=== PATIENT | female | born 1935 | race Caucasian/White ===

== ENCOUNTER → 2016-05-09 | Outpatient (REF) | payer MEDICARE, BC, OTHER ==
[2016-05-09 18:46] LABS: BASO % 0.2 % (0.0-1.0); EOS # 0.1 K/mm3 (0.0-0.50); EOS % 1.1 % (0.0-3.0); LARGE UNSTAINED CELL # 0.1 K/mm3 (0.0-0.4); LARGE UNSTAINED CELL % 1.5 % (0.0-4.0); LYMPH # 0.8 K/mm3 (1.5-4.5); LYMPH % 10.2 % (24.0-44.0); MEAN CORPUSCULAR HEMOGLOBIN 28.6 pg (27.0-33.0); MEAN CORPUSCULAR HGB CONC 30.8 g/dl (32.0-36.5); MONO # 0.4 K/mm3 (0.0-0.8); PLATELET COUNT, AUTOMATED 283 k/mm3 (150-450); RED CELL DISTRIBUTION WIDTH 13.5 % (11.5-14.5); WHITE BLOOD COUNT 7.3 K/mm3 (4.0-10.0)
[2016-05-09 18:50] LABS: ALBUMIN 3.5 GM/DL (3.2-5.2); ALBUMIN/GLOBULIN RATIO 1.06 (1.00-1.93); ALKALINE PHOSPHATASE 93 U/L (45-117); ALT/SGPT 29 U/L (12-78); ANION GAP 11 MEQ/L (8-16); AST/SGOT 19 U/L (15-37); BILIRUBIN,TOTAL 0.3 MG/DL (0.2-1.0); BLOOD UREA NITROGEN 23 MG/DL (7-18); CALCIUM LEVEL 8.9 MG/DL (8.8-10.2); CARBON DIOXIDE LEVEL 24 MEQ/L (21-32); CHLORIDE LEVEL 105 MEQ/L (98-107); CREATININE FOR GFR 0.78 MG/DL (0.55-1.02); GLOMERULAR FILTRATION RATE > 60.0 (>32); GLUCOSE, FASTING 160 MG/DL (83-110); POTASSIUM SERUM 4.5 MEQ/L (3.5-5.1); SODIUM LEVEL 140 MEQ/L (136-145); TOTAL PROTEIN 6.8 GM/DL (6.4-8.2)
[2016-05-14 00:06] LABS: PHENOBARBITAL (PRIMIDONE) None Detected ug/mL (15-40)
== END | disposition home or self-care (01) ==
LOC: M LABNEURO 17:13
PROVIDERS: ATTEND Psychiatry & Neurology Neurology
DX: E11.9 Type 2 diabetes mellitus without complications (principal); R25.1 Tremor, unspecified

== ENCOUNTER → 2017-07-03 | Outpatient (CLI) | payer MEDICARE, BC, OTHER | LOC: M SMT 13:55 | DX: J44.9 Chronic obstructive pulmonary disease, unspecified (principal); R06.02 Shortness of breath | CPT/HCPCS: 71046 ==

== ENCOUNTER 2017-07-15 01:08 | Inpatient (IN) | payer MEDICARE, BC, OTHER ==
[2017-07-15 02:23] LABS: BASO % 0.1 % (0.0-1.0); EOS % 0.1 % (0.0-3.0); HEMATOCRIT 40.8 % (36.0-47.0); HEMOGLOBIN 13.1 g/dl (12.0-16.0); IMMATURE GRANULOCYTE % 0.5 % (0-3.0); LYMPH # 0.8 10^3/uL (1.5-4.5); LYMPH % 4.5 % (24.0-44.0); MEAN CORPUSCULAR HEMOGLOBIN 28.7 pg (27.0-33.0); MEAN CORPUSCULAR HGB CONC 32.1 g/dl (32.0-36.5); MEAN CORPUSCULAR VOLUME 89.3 fl (80.0-96.0); MONO # 0.8 10^3/uL (0.0-0.8); MONO % 4.5 % (0.0-5.0); NEUTROPHILS # 16.8 10^3/uL (1.8-7.7); NEUTROPHILS % 90.3 % (36.0-66.0); PLATELET COUNT, AUTOMATED 293 10^3/uL (150-450); RED BLOOD COUNT 4.57 10^6/uL (4.00-5.40); RED CELL DISTRIBUTION WIDTH 14.1 % (11.5-14.5); WHITE BLOOD COUNT 18.6 10^3/uL (4.0-10.0)
[2017-07-15] MEDS: dexameTHASONE 20 MG/5 ML VIAL (J1100) IV (02:45)
[2017-07-15 02:46] LABS: ANION GAP 7 MEQ/L (8-16); BLOOD UREA NITROGEN 17 MG/DL (7-18); CALCIUM LEVEL 9.1 MG/DL (8.8-10.2); CARBON DIOXIDE LEVEL 28 MEQ/L (21-32); CHLORIDE LEVEL 102 MEQ/L (98-107); CK-MB VALUE MASS 2.4 NG/ML (<3.6); CPK CREATINE PHOSPHOKINASE 47 U/L (26-192); CREATININE FOR GFR 0.79 MG/DL (0.55-1.30); GLOMERULAR FILTRATION RATE > 60.0 (>32); GLUCOSE, FASTING 321 MG/DL (70-100); POTASSIUM SERUM 4.1 MEQ/L (3.5-5.1); SODIUM LEVEL 137 MEQ/L (136-145); TROPONIN I < 0.02 NG/ML (< 0.10)
[2017-07-15 02:46] LABS: LACTIC ACID SEPSIS PROTOCOL 1.9 MMOL/L (0.4-2.0)
[2017-07-15] MEDS: ALBUTEROL SULFATE 2.5 MG/0.5 ML INH NEB SOLN NEB (02:58)
[2017-07-15] MEDS: METOPROLOL 5 MG/5 ML VIAL IV (03:19)
[2017-07-15] MEDS ORDERED: ISOVUE-370 76% 100ML VIAL (Q9967) As Ordered (03:53)
[2017-07-15 04:11] LABS: ABG BASE EXCESS 2.8 (-2.0-2.0); ABG O2 SATURATION 96.6 % (95.0-99.0); ABG PARTIAL PRESSURE CO2 35.4 mmHg (35.0-45.0); ABG PARTIAL PRESSURE O2 81.7 mmHg (75.0-100.0); ABG STANDARD HCO3 26.9 MEQ/L (22.0-26.0); ABG pH (ARTERIAL) 7.483 UNITS (7.350-7.450)
[2017-07-15] MEDS: ACETAMINOPHEN TAB 650MG DOSE (2X325MG) PO (04:24)
[2017-07-15] MEDS: ASPIRIN 325 MG TAB PO (05:08)
[2017-07-15 05:37] LABS: ESTIMATED AVERAGE GLUCOSE 192 MG/DL (60-110); HEMOGLOBIN A1c 8.3 %
[2017-07-15 05:38] LABS: C REACTIVE PROTEIN QUANTITATIV 9.13 MG/DL (0.00-0.30); FREE THYROXINE INDEX 3.2 % (1.3-4.8); T UPTAKE 36 % (30-39); THYROID STIMULATING HORMONE 0.387 uIU/ML (0.358-3.740); THYROXINE (T4) 8.9 UG/DL (4.5-12.0)
[2017-07-15] MEDS ORDERED: NORCO, ANEXSIA 5/325MG TABLET (HYDROcodone/ACETAMINOPHEN) PO (06:00)
[2017-07-15] MEDS ORDERED: LEVALBUTEROL 1.25 MG/0.5 ML CONCENTRATE NEB INH (06:00)
[2017-07-15] MEDS ORDERED: DEXTROSE 50% 50 ML SYRINGE IV (06:00)
[2017-07-15] MEDS ORDERED: GLUCOSE 4 GM CHEW TABLET PO (06:00)
[2017-07-15] MEDS ORDERED: GLUCAGON FOR INJ 1 MG VIAL (J1610) SC (06:00)
[2017-07-15] MEDS ORDERED: ACETAMINOPHEN TAB 650MG DOSE (2X325MG) PO (06:15)
[2017-07-15] MEDS ORDERED: ONDANSETRON 4MG/2ML VIAL (J2405) IV (06:15)
[2017-07-15] MEDS: cefTRIAXone SOD 2 GM in D5W MINI-BAG PLUS 50 ML IV (06:40)
[2017-07-15] MEDS: VERAPAMIL 80 MG TAB PO ×4 (06:43→23:52)
[2017-07-15] MEDS: HumaLOG INSULIN (NovoLOG) PER UNIT SC ×4 (07:30→20:46)
[2017-07-15] MEDS: AZITHROMYCIN INJ 500 MG, VIAL MATE ADAPTER 1 EACH in D5W 250 ML IV (08:29)
[2017-07-15] MEDS: APIXABAN 5 MG TAB (ELIQUIS) PO ×2 (08:29→20:41)
[2017-07-15] MEDS: SENOKOT S TAB PO ×2 (08:29→20:42)
[2017-07-15] MEDS: ASPIRIN 81 MG ENTERIC TAB PO (08:29)
[2017-07-15] MEDS: FLUTICASONE PROP 0.05% NASAL SPRAY 16 GM (FLONASE) ×2 (08:30→20:31)
[2017-07-15] MEDS: IRBESARTAN 75MG TABLET PO (08:31)
[2017-07-15] MEDS: MONTELUKAST 10 MG TAB PO (08:31)
[2017-07-15] MEDS: ROSUVASTATIN 10 MG TAB (CRESTOR) PO (08:32)
[2017-07-15] MEDS: PRIMIDONE 50 MG TAB PO ×2 (08:32→20:41)
[2017-07-15] MEDS: TIOTROPIUM INHALER/CAPSULE (SPIRIVA) INH (09:00)
[2017-07-15] MEDS ORDERED: VERAPAMIL 120 MG SR TAB PO (09:00)
[2017-07-15] MEDS: BUDESONIDE 0.5 MG/2 ML INHALATION SUSPENSION INH ×2 (09:00→21:00)
[2017-07-15] MEDS: ADVAIR HFA 230/21MCG INHALER INH ×2 (09:01→20:37)
[2017-07-15] MEDS: IPRATROPIUM 0.5MG/ALBUTEROL 2.5MG INH SOL UD 3ML (DUONEB)(J7620) NEB ×3 (09:01→20:00)
[2017-07-15 09:29] LABS: CK-MB VALUE MASS 2.8 NG/ML (<3.6); CPK CREATINE PHOSPHOKINASE 64 U/L (26-192); MB/CK RELATIVE INDEX 4.37 (< OR =4); TROPONIN I < 0.02 NG/ML (< 0.10)
[2017-07-15] MEDS: methylPREDNISolone INJ 125 MG/2 ML VIAL (J2930) IV ×2 (11:46→18:48)
[2017-07-15 12:12] LABS: CPK CREATINE PHOSPHOKINASE 68 U/L (26-192); TROPONIN I < 0.02 NG/ML (< 0.10)
[2017-07-15 12:13] LABS: CK-MB VALUE MASS 3.5 NG/ML (<3.6); MB/CK RELATIVE INDEX 5.14 (< OR =4)
[2017-07-15 13:34] LABS: BEDSIDE GLUCOSE 351 MG/DL (83-110)
[2017-07-15 13:34] LABS: BEDSIDE GLUCOSE 313 MG/DL (83-110)
[2017-07-15 17:37] LABS: BEDSIDE GLUCOSE 456 MG/DL (83-110)
[2017-07-15] MEDS: rOPINIRole 0.25 MG TAB(REQUIP) PO (20:41)
[2017-07-15] MEDS: hydrOXYzine 10 MG TAB PO (20:42)
[2017-07-15 21:15] LABS: BEDSIDE GLUCOSE 378 MG/DL (83-110)
[2017-07-16] MEDS: IPRATROPIUM 0.5MG/ALBUTEROL 2.5MG INH SOL UD 3ML (DUONEB)(J7620) NEB ×4 (02:00→23:07)
[2017-07-16] MEDS: methylPREDNISolone INJ 125 MG/2 ML VIAL (J2930) IV (03:34)
[2017-07-16 05:36] LABS: HEMATOCRIT 34.2 % (36.0-47.0); MEAN CORPUSCULAR HEMOGLOBIN 28.8 pg (27.0-33.0); MEAN CORPUSCULAR HGB CONC 31.9 g/dl (32.0-36.5); MEAN CORPUSCULAR VOLUME 90.5 fl (80.0-96.0); PLATELET COUNT, AUTOMATED 224 10^3/uL (150-450); RED BLOOD COUNT 3.78 10^6/uL (4.00-5.40); RED CELL DISTRIBUTION WIDTH 14.3 % (11.5-14.5)
[2017-07-16] MEDS: cefTRIAXone SOD 2 GM in D5W MINI-BAG PLUS 50 ML IV (05:36)
[2017-07-16 05:44] LABS: HEMOGLOBIN 10.9 g/dl (12.0-16.0)
[2017-07-16 05:47] LABS: ANION GAP 9 MEQ/L (8-16); BLOOD UREA NITROGEN 27 MG/DL (7-18); CALCIUM LEVEL 8.7 MG/DL (8.8-10.2); CARBON DIOXIDE LEVEL 25 MEQ/L (21-32); CHLORIDE LEVEL 104 MEQ/L (98-107); CREATININE FOR GFR 0.67 MG/DL (0.55-1.30); GLOMERULAR FILTRATION RATE > 60.0 (>32); GLUCOSE, FASTING 328 MG/DL (70-100); POTASSIUM SERUM 4.3 MEQ/L (3.5-5.1); SODIUM LEVEL 138 MEQ/L (136-145)
[2017-07-16] MEDS: LEVOTHYROXINE 25MCG TABLET (0.025MG) PO (05:58)
[2017-07-16] MEDS ORDERED: NORCO, ANEXSIA 5/325MG TABLET (HYDROcodone/ACETAMINOPHEN) PO (06:00)
[2017-07-16] MEDS: VERAPAMIL 80 MG TAB PO ×3 (06:01→17:10)
[2017-07-16] MEDS: AZITHROMYCIN INJ 500 MG, VIAL MATE ADAPTER 1 EACH in D5W 250 ML IV (06:35)
[2017-07-16] MEDS: TIOTROPIUM INHALER/CAPSULE (SPIRIVA) INH (08:00)
[2017-07-16] MEDS: ADVAIR HFA 230/21MCG INHALER INH ×2 (08:01→23:06)
[2017-07-16] MEDS: BUDESONIDE 0.5 MG/2 ML INHALATION SUSPENSION INH ×2 (08:02→23:06)
[2017-07-16] MEDS: SENOKOT S TAB PO ×2 (08:34→20:11)
[2017-07-16] MEDS: PRIMIDONE 50 MG TAB PO ×2 (08:34→20:11)
[2017-07-16] MEDS: ROSUVASTATIN 10 MG TAB (CRESTOR) PO (08:34)
[2017-07-16] MEDS: IRBESARTAN 75MG TABLET PO (08:34)
[2017-07-16] MEDS: HumaLOG INSULIN (NovoLOG) PER UNIT SC ×4 (08:34→20:16)
[2017-07-16] MEDS: APIXABAN 5 MG TAB (ELIQUIS) PO ×2 (08:34→20:11)
[2017-07-16] MEDS: MONTELUKAST 10 MG TAB PO (08:34)
[2017-07-16] MEDS: ASPIRIN 81 MG ENTERIC TAB PO (08:35)
[2017-07-16] MEDS: FLUTICASONE PROP 0.05% NASAL SPRAY 16 GM (FLONASE) (08:35)
[2017-07-16 12:31] LABS: HEMOGLOBIN 11.8 g/dl (12.0-16.0)
[2017-07-16] MEDS ORDERED: SLF 3 ML SYR IV (12:45)
[2017-07-16] MEDS: SLF 3 ML SYR IV (14:00)
[2017-07-16] MEDS: methylPREDNISolone INJ 40 MG/1 ML VIAL (J2920) IV (15:00)
[2017-07-16 17:13] LABS: BEDSIDE GLUCOSE 401 MG/DL (83-110)
[2017-07-16 17:13] LABS: BEDSIDE GLUCOSE 265 MG/DL (83-110)
[2017-07-16 20:05] LABS: BEDSIDE GLUCOSE 311 MG/DL (83-110)
[2017-07-16] MEDS: rOPINIRole 0.25 MG TAB(REQUIP) PO (20:11)
[2017-07-16] MEDS: hydrOXYzine 10 MG TAB PO (20:11)
[2017-07-16 20:35] LABS: ANION GAP 10 MEQ/L (8-16); BLOOD UREA NITROGEN 35 MG/DL (7-18); CALCIUM LEVEL 8.8 MG/DL (8.8-10.2); CARBON DIOXIDE LEVEL 25 MEQ/L (21-32); CHLORIDE LEVEL 102 MEQ/L (98-107); GLOMERULAR FILTRATION RATE 56.4 (>32); GLUCOSE, FASTING 349 MG/DL (70-100); MAGNESIUM LEVEL 2.1 MG/DL (1.8-2.4); POTASSIUM SERUM 4.8 MEQ/L (3.5-5.1); SODIUM LEVEL 137 MEQ/L (136-145)
[2017-07-17] MEDS: IPRATROPIUM 0.5MG/ALBUTEROL 2.5MG INH SOL UD 3ML (DUONEB)(J7620) NEB ×5 (00:15→20:44)
[2017-07-17] MEDS: VERAPAMIL 80 MG TAB PO ×5 (02:27→23:58)
[2017-07-17] MEDS: methylPREDNISolone INJ 40 MG/1 ML VIAL (J2920) IV (02:27)
[2017-07-17] MEDS: FLUTICASONE PROP 0.05% NASAL SPRAY 16 GM (FLONASE) ×3 (02:27→21:02)
[2017-07-17] MEDS: SLF 3 ML SYR IV ×4 (02:28→21:02)
[2017-07-17 05:31] LABS: HEMATOCRIT 35.3 % (36.0-47.0); HEMOGLOBIN 11.3 g/dl (12.0-16.0); MEAN CORPUSCULAR HEMOGLOBIN 29.1 pg (27.0-33.0); PLATELET COUNT, AUTOMATED 255 10^3/uL (150-450); RED BLOOD COUNT 3.88 10^6/uL (4.00-5.40); RED CELL DISTRIBUTION WIDTH 14.5 % (11.5-14.5); WHITE BLOOD COUNT 16.6 10^3/uL (4.0-10.0)
[2017-07-17 05:53] LABS: ANION GAP 6 MEQ/L (8-16); BLOOD UREA NITROGEN 31 MG/DL (7-18); C REACTIVE PROTEIN QUANTITATIV 5.81 MG/DL (0.00-0.30); CALCIUM LEVEL 8.8 MG/DL (8.8-10.2); CARBON DIOXIDE LEVEL 28 MEQ/L (21-32); CHLORIDE LEVEL 102 MEQ/L (98-107); CREATININE FOR GFR 0.75 MG/DL (0.55-1.30); GLOMERULAR FILTRATION RATE > 60.0 (>32); GLUCOSE, FASTING 386 MG/DL (70-100); MAGNESIUM LEVEL 2.2 MG/DL (1.8-2.4); POTASSIUM SERUM 4.9 MEQ/L (3.5-5.1); SODIUM LEVEL 136 MEQ/L (136-145)
[2017-07-17] MEDS: AZITHROMYCIN INJ 500 MG, VIAL MATE ADAPTER 1 EACH in D5W 250 ML IV (06:02)
[2017-07-17] MEDS: LEVOTHYROXINE 25MCG TABLET (0.025MG) PO (06:02)
[2017-07-17] MEDS: cefTRIAXone SOD 2 GM in D5W MINI-BAG PLUS 50 ML IV (06:02)
[2017-07-17] MEDS: ADVAIR HFA 230/21MCG INHALER INH ×2 (07:28→21:00)
[2017-07-17] MEDS: BUDESONIDE 0.5 MG/2 ML INHALATION SUSPENSION INH ×2 (07:28→20:45)
[2017-07-17] MEDS: TIOTROPIUM INHALER/CAPSULE (SPIRIVA) INH (07:29)
[2017-07-17] MEDS: SENOKOT S TAB PO ×2 (08:07→21:00)
[2017-07-17] MEDS: IRBESARTAN 75MG TABLET PO (08:07)
[2017-07-17] MEDS: MONTELUKAST 10 MG TAB PO (08:07)
[2017-07-17] MEDS: APIXABAN 5 MG TAB (ELIQUIS) PO ×2 (08:07→21:00)
[2017-07-17] MEDS: ASPIRIN 81 MG ENTERIC TAB PO (08:07)
[2017-07-17] MEDS: PRIMIDONE 50 MG TAB PO ×2 (08:07→20:59)
[2017-07-17] MEDS: ROSUVASTATIN 10 MG TAB (CRESTOR) PO (08:07)
[2017-07-17] MEDS: HumaLOG INSULIN (NovoLOG) PER UNIT SC ×4 (08:08→21:01)
[2017-07-17] MEDS: guaiFENesin ER 600 MG TAB PO ×2 (08:34→21:00)
[2017-07-17] MEDS: amLODIPine 5 MG TAB PO (09:18)
[2017-07-17 12:39] LABS: BEDSIDE GLUCOSE 325 MG/DL (83-110)
[2017-07-17 18:07] LABS: BEDSIDE GLUCOSE 244 MG/DL (83-110)
[2017-07-17 20:57] LABS: BEDSIDE GLUCOSE 272 MG/DL (83-110)
[2017-07-17] MEDS: rOPINIRole 0.25 MG TAB(REQUIP) PO (20:59)
[2017-07-17] MEDS: predniSONE 20 MG TAB PO (21:00)
[2017-07-17] MEDS: hydrOXYzine 10 MG TAB PO (21:00)
[2017-07-17] MEDS: LEVEMIR (INSULIN DETEMIR) 1 UNITS/0.01ML SC (21:01)
[2017-07-18] MEDS: IPRATROPIUM 0.5MG/ALBUTEROL 2.5MG INH SOL UD 3ML (DUONEB)(J7620) NEB ×2 (00:58→08:00)
[2017-07-18 05:32] LABS: HEMATOCRIT 36.1 % (36.0-47.0); HEMOGLOBIN 11.5 g/dl (12.0-15.5); MEAN CORPUSCULAR HEMOGLOBIN 29.1 pg (27.0-33.0); MEAN CORPUSCULAR HGB CONC 31.9 g/dl (32.0-36.5); MEAN CORPUSCULAR VOLUME 91.4 fl (80.0-96.0); PLATELET COUNT, AUTOMATED 249 10^3/uL (150-450); RED BLOOD COUNT 3.95 10^6/uL (4.00-5.40); RED CELL DISTRIBUTION WIDTH 14.2 % (11.5-14.5)
[2017-07-18] MEDS: cefTRIAXone SOD 2 GM in D5W MINI-BAG PLUS 50 ML IV (05:37)
[2017-07-18] MEDS: LEVOTHYROXINE 25MCG TABLET (0.025MG) PO (05:37)
[2017-07-18] MEDS: VERAPAMIL 80 MG TAB PO ×2 (05:37→12:00)
[2017-07-18 05:52] LABS: ANION GAP 5 MEQ/L (8-16); BLOOD UREA NITROGEN 28 MG/DL (7-18); CALCIUM LEVEL 8.8 MG/DL (8.8-10.2); CARBON DIOXIDE LEVEL 31 MEQ/L (21-32); CHLORIDE LEVEL 101 MEQ/L (98-107); CREATININE FOR GFR 0.77 MG/DL (0.55-1.30); GLOMERULAR FILTRATION RATE > 60.0 (>32); GLUCOSE, FASTING 283 MG/DL (70-100); POTASSIUM SERUM 4.7 MEQ/L (3.5-5.1); SODIUM LEVEL 137 MEQ/L (136-145)
[2017-07-18] MEDS: SLF 3 ML SYR IV (06:29)
[2017-07-18] MEDS: AZITHROMYCIN INJ 500 MG, VIAL MATE ADAPTER 1 EACH in D5W 250 ML IV (06:29)
[2017-07-18] MEDS: HumaLOG INSULIN (NovoLOG) PER UNIT SC ×2 (08:00→12:00)
[2017-07-18] MEDS: PRIMIDONE 50 MG TAB PO (08:01)
[2017-07-18] MEDS: guaiFENesin ER 600 MG TAB PO (08:01)
[2017-07-18] MEDS: ROSUVASTATIN 10 MG TAB (CRESTOR) PO (08:01)
[2017-07-18] MEDS: APIXABAN 5 MG TAB (ELIQUIS) PO (08:01)
[2017-07-18] MEDS: ASPIRIN 81 MG ENTERIC TAB PO (08:02)
[2017-07-18] MEDS: predniSONE 20 MG TAB PO (08:02)
[2017-07-18] MEDS: IRBESARTAN 75MG TABLET PO (08:02)
[2017-07-18] MEDS: SENOKOT S TAB PO (08:02)
[2017-07-18] MEDS: MONTELUKAST 10 MG TAB PO (08:02)
[2017-07-18] MEDS: amLODIPine 5 MG TAB PO (08:02)
[2017-07-18] MEDS: FLUTICASONE PROP 0.05% NASAL SPRAY 16 GM (FLONASE) (08:03)
[2017-07-18] MEDS: LEVEMIR (INSULIN DETEMIR) 1 UNITS/0.01ML SC (08:03)
[2017-07-18] MEDS: TIOTROPIUM INHALER/CAPSULE (SPIRIVA) INH (08:48)
[2017-07-18] MEDS: ADVAIR HFA 230/21MCG INHALER INH (08:48)
[2017-07-18] MEDS: BUDESONIDE 0.5 MG/2 ML INHALATION SUSPENSION INH (08:49)
== END 2017-07-18 12:23 | disposition home or self-care (01) | DRG 193 ==
LOC: M ED 01:08 → M ED INP 06:08 → M PCU 15:10
DX: J18.9 Pneumonia, unspecified organism (principal); J96.01 Acute respiratory failure with hypoxia; J44.0 Chronic obstructive pulmonary disease with (acute) lower respiratory infection; J44.1 Chronic obstructive pulmonary disease with (acute) exacerbation; E11.65 Type 2 diabetes mellitus with hyperglycemia; I10 Essential (primary) hypertension; E78.5 Hyperlipidemia, unspecified; G25.81 Restless legs syndrome; G25.0 Essential tremor; I48.91 Unspecified atrial fibrillation; Z96.641 Presence of right artificial hip joint; Z87.891 Personal history of nicotine dependence; Z79.891 Long term (current) use of opiate analgesic; Z79.82 Long term (current) use of aspirin; Z79.899 Other long term (current) drug therapy; Z79.01 Long term (current) use of anticoagulants

== ENCOUNTER → 2018-05-28 | Outpatient (REF) | payer MEDICARE, BC, OTHER ==
[~2018-05-28] MED LIST: ADV500INH INH; AMLO5TAB6 PO; ASPI81TA21 PO; CALC1TAB60 PO; CALC600T31 PO; CRES10TA32 PO; DESO0.254 EXT; DOXY-350 PO; ELIQ5TAB PO; FLON1SPR; FLUT1LOT EX; HYDR-3713 PO; HYDR-643 PO; IRBE75TA5 PO; KOMBIGLYZE PO; LEVA0.636 INH; LEVO25TA5 PO; LINZ72CA PO; METF-415 PO; NITR4TASL SL; PRED10TA2 PO; PRED20TA PO; PRIM50TA6 PO; PULM0.5S INH; ROPI0.253 PO; ROPI3TAB3 PO; SING10TA32 PO; SPIR12.9 INH; VENTAER IN; VERA24TASA PO
== END ==
LOC: M LAB REF 17:00
PROVIDERS: ATTEND Nurse Practitioner Adult Health
DX: R05 Cough (principal); J44.9 Chronic obstructive pulmonary disease, unspecified

== ENCOUNTER → 2018-06-09 | Outpatient (REF) | payer MEDICARE, BC, OTHER | LOC: M LAB REF 17:38 | PROVIDERS: ATTEND Nurse Practitioner Adult Health | DX: E11.22 Type 2 diabetes mellitus with diabetic chronic kidney disease (principal) ==

== ENCOUNTER → 2019-04-08 | Outpatient (REF) | payer MEDICARE, BC, OTHER ==
[~2019-04-08] MED LIST changes: +CRES10TA PO; -CRES10TA32 PO
== END ==
LOC: M LAB REF 16:50
PROVIDERS: ATTEND Nurse Practitioner Adult Health
DX: J44.9 Chronic obstructive pulmonary disease, unspecified (principal)

== ENCOUNTER → 2019-05-05 | Outpatient (REF) | payer MEDICARE, BC, OTHER | LOC: M LAB REF 17:15 | PROVIDERS: ATTEND Registered Nurse | DX: N39.0 Urinary tract infection, site not specified (principal) ==

== ENCOUNTER → 2019-07-25 | Outpatient (REF) | payer MEDICARE, BC, OTHER ==
[~2019-07-25] MED LIST changes: +IRBE75TA4 PO; -IRBE75TA5 PO
== END ==
LOC: M LAB REF 13:03
PROVIDERS: ATTEND Physician Assistant
DX: R30.0 Dysuria (principal)